=== PATIENT | female | born 1935 | race Caucasian/White ===

== ENCOUNTER → 2021-07-07 | Day surgery (SDC) | payer MEDICARE, OTHER ==
[~2021-07-07] MED LIST: ACIPHEX20 MG PO; ASPIRIN EC81 MG PO; CYMBALTA 30 MG30 MG PO; FOLIC ACID 1 MG1 MG PO; LEXAPRO20 MG PO; MAGNESIUM400 M2 PO; MAXIMUM DAILY1 EAC1 PO; METHOCARBAMOL500 MG PO; MOBIC7.5 MG PO; NASACORT16.9 ML; NORVASC10 MG PO; PATADAY2.5 ML EYEBOTH; PERCOCET 10-321 EACH PO; PRESERVISION A1 EACH PO; REPATHA SY140 MG/1 M SQ; ROPINIROLE HC0.25 MG PO; SYNTHROID50 MCG PO; VAGIFEM10 MCG VG; VALIUM 5 MG TAB5 MG PO; ZOFRAN 4 MG TAB4 MG PO; ZYRTEC10 MG PO
== END | disposition home or self-care (01) ==
LOC: OR 10:30
DX: M46.1 Sacroiliitis, not elsewhere classified (principal); M47.26 Other spondylosis with radiculopathy, lumbar region; Z88.2 Allergy status to sulfonamides; Z88.5 Allergy status to narcotic agent; Z88.0 Allergy status to penicillin; Z79.82 Long term (current) use of aspirin; Z79.899 Other long term (current) drug therapy; Z20.822 Contact with and (suspected) exposure to COVID-19
CPT/HCPCS: 76000; J1040; Q9967; U0002

== ENCOUNTER → 2022-02-16 | Day surgery (SDC) | payer MEDICARE, OTHER ==
[~2022-02-16] MED LIST changes: +ARMOUR THYROID30 MG PO; +FLONASE 0.05% N16 GM; +LASIX20 MG PO; +NORVASC5 MG PO; +PRESERVISION A1 EAC3 PO
== END | disposition home or self-care (01) ==
LOC: OR 07:23
DX: M48.061 Spinal stenosis, lumbar region without neurogenic claudication (principal); M47.26 Other spondylosis with radiculopathy, lumbar region; M46.1 Sacroiliitis, not elsewhere classified; Z79.82 Long term (current) use of aspirin; Z79.899 Other long term (current) drug therapy; Z88.2 Allergy status to sulfonamides
CPT/HCPCS: 76000; J1040; Q9967